=== PATIENT | male | born 1990 | race Caucasian/White ===

== ENCOUNTER 2017-10-17 11:21 | Emergency (ER) | payer BC ==
[2017-10-17 11:41] VITALS: BP 137/77; PULSE 106; RESP 18; TEMP 98.3
--- NOTE | 2017-10-17 12:45 | ED ---
General Adult HPI - General Chief complaint: Recheck/Abnormal Lab/Rx Stated complaint: recheck wound Rt hand Time Seen by Provider: 10/17/17 11:59 Source: patient, RN notes reviewed Mode of arrival: ambulatory Limitations: no limitations - History of Present Illness Initial comments: 27-year-old male presents to the emergency department for a second opinion on a surgical incision on his right index finger. Patient states that about 2 weeks ago he had gotten glass in his finger and it had become infected. He went to an urgent care in [place] and had the glass removed and was started on antibiotics. Pain worsened and patient went to [facility]. At that time patient was recommended to be transferred and started on IV antibiotics which he refused. Patient states he then drove himself to [facility] where he underwent surgical debridement of the wound from the distal phalanx through the MCP joint and was started on vancomycin. The wound was left open to allow for drainage. Patient states he had multiple altercations at that hospital. He was recommended to stay longer for antibiotics and surgical consults but signed himself out AMA. Patient presents today for second opinion on the wound to make sure it is not getting worse. Patient denies fevers or chills at home. Patient states that earlier today his dressing felt more wet than normal which concerned him. Patient denies any streaking redness up the hand. Patient states he is currently taking Bactrim as an antibiotic. Patient states he is not here to be admitted and does not want to be transferred. Patient states he does not want to stay in [place] as he lives in [place] and will be heading back there. Patient has no other complaints at this time including shortness of breath, chest pain, abdominal pain, nausea or vomiting, headache, or visual changes. - Related Data Home Medications Medication Instructions Recorded Confirmed Sulfamethox-Tmp 800-160Mg [Bactrim 1 tab PO Q12HR 10/17/17 10/17/17 DS 800-160 mg] Allergies Allergy/AdvReac Type Severity Reaction Status Date / Time Penicillins Allergy Unknown Verified 10/17/17 11:55 Childhood Review of Systems ROS Statement: Those systems with pertinent positive or pertinent negative responses have been documented in the HPI. ROS Other: All systems not noted in ROS Statement are negative. Past Medical History Past Medical History: No Reported History History of Any Multi-Drug Resistant Organisms: MRSA Date of last positivie culture/infection: right hand MDRO Source:: 10-14-17 Additional Past Surgical History / Comment(s): dental surgery. right hand surgery to clean wound Past Psychological History: No Psychological Hx Reported Smoking Status: Current every day smoker Past Alcohol Use History: None Reported Past Drug Use History: Marijuana General Exam Limitations: no limitations General appearance: alert, in no apparent distress Head exam: Present: atraumatic, normocephalic, normal inspection Eye exam: Present: normal appearance, PERRL, EOMI. Absent: scleral icterus, conjunctival injection, periorbital swelling, periorbital tenderness ENT exam: Present: normal exam, normal oropharynx, mucous membranes moist, normal external ear exam Neck exam: Present: normal inspection, full ROM. Absent: tenderness, meningismus, lymphadenopathy Respiratory exam: Present: normal lung sounds bilaterally. Absent: respiratory distress, wheezes, rales, rhonchi, stridor Cardiovascular Exam: Present: regular rate, normal rhythm, normal heart sounds. Absent: systolic murmur, diastolic murmur, rubs, gallop, clicks Extremities exam: Present: tenderness (Tenderness to the right index finger), other (Radial pulse 2+ in the right upper extremity. Cap refill less than 2 seconds. There is a surgical wound left open from the distal phalanx of the right index finger down through the MCP joint. Tendons exposed. ). Absent: full ROM (Patient is able to flex the index finger right hand somewhat.) Course Vital Signs 10/17/17 11:36 Temperature 98.3 F Pulse Rate 106 H Respiratory 18 Rate Blood Pressure 137/77 O2 Sat by Pulse 100 Oximetry Medical Decision Making - Medical Decision Making 27-year-old male presents to the emergency department for a chief complaint of surgical wound. Patient had debridement of the right index finger 4 days ago at [facility]. Wound was left open from distal phalanx through MCP joint of right index finger by surgeon. Patient left AMA despite recommendations from [place] to continue receiving IV antibiotics and continued surgical and infectious disease consults. Patient presents today to make sure that it is not becoming more infected and that he is caring for the wound correctly. Patient was educated that without further workup it is impossible to know the state of the finger. He was educated on possibilities including humphrey, tendon, and septic infection. It was firmly recommended to the patient to undergo extensive workup in this emergency department as well as be admitted to the hospital for IV antibiotics and transferred to a Medical Center with hand surgeons on-call. Patient refuses all of this. He refuses to be admitted and states he is leaving the emergency department no matter what and does not want a workup. He states he may go back to [place] today. It was recommended that as soon as he is able to he should go to an emergency department to be admitted for IV antibiotics and further workup. Patient understands this. Patient signed out AMA. Disposition Clinical Impression: Surgical wound infection Disposition: Left Against Medical Advice Condition: Good Instructions: Debridement (ED), Surgical Site Infections (ED) Additional Instructions: Please go to a hospital as soon as possible to be admitted for IV antibiotics and further workup. Is patient prescribed a controlled substance at d/c from ED?: No Referrals: None,Stated [Primary Care Provider] - 1-2 days Time of Disposition: 12:43
== END 2017-10-17 12:56 | disposition left against medical advice (07) ==
LOC: EC 11:21
DX: T81.4XXA Infection following a procedure, initial encounter (principal); F17.200 Nicotine dependence, unspecified, uncomplicated; Z86.14 Personal history of Methicillin resistant Staphylococcus aureus infection; Z98.890 Other specified postprocedural states; Z88.0 Allergy status to penicillin
CPT/HCPCS: 99282